=== PATIENT | male | born 1935 | race Caucasian/White ===

== ENCOUNTER 2016-05-23 10:07 | Emergency (ER) | payer OTHER, BC ==
[~2016-05-23] VITALS: Ht 170.2 cm; Wt 63.0 kg
[~2016-05-23 10:07] MED LIST: ARICEPT10 MG PO; DEPAKOTE500 MG PO; DETROL LA4 MG PO; LEXAPRO5 MG PO; LIPITOR10 MG PO; LO-DOSE ASPIRIN81 M1 PO; NORVASC2.5 MG PO; PLAVIX75 MG PO; ZOFRAN4 MG PO
[2016-05-23 11:05] VITALS: BP 129/60
[2016-05-23 11:30] VITALS: BP 148/72
[2016-05-23 13:07] VITALS: BP 148/72
== END 2016-05-23 13:10 ==
LOC: EME → EDBD 10:07 → EME 10:07
DX: S09.90XA Unspecified injury of head, initial encounter (principal); F03.90 Unspecified dementia, unspecified severity, without behavioral disturbance, psychotic disturbance, mood disturbance, and anxiety; W07.XXXA Fall from chair, initial encounter; E78.5 Hyperlipidemia, unspecified; I10 Essential (primary) hypertension
CPT/HCPCS: 70450; 99281; 99284

== ENCOUNTER 2016-07-06 06:52 | Inpatient (IN) | payer OTHER, BC ==
[~2016-07-06] VITALS: Ht 177.8 cm; Wt 69.5 kg
[2016-07-06] MEDS ORDERED: CALCIUM ANTACID PO (08:02)
[2016-07-06] MEDS ORDERED: QUESTRAN PACKET4 GM PO (08:03)
[2016-07-06 08:25] LABS: EOSINOPHIL (%) 0.3 % (0-5); HEMATOCRIT 34.1 % (38.0-50.0); IMMATURE GRANULOCYTE (%) 0.3 % (0.0-0.7); INSTRUMENT ABS NEUTROPHIL CT 6.8 K/uL; MCH 29.8 PG (29.0-34.0); MCHC 32.8 G/DL (30.0-36.0); MCV 90.7 FL (86-99); MEAN PLAT.VOLUME 9.1 uM^3 (9.0-12.4); MONOCYTE (%) 8.1 % (3-12); MONOCYTE COUNT 0.7 K/uL (0-0.8); NEUTROPHIL (%) 79.2 % (45-76); NEUTROPHIL COUNT 6.8 K/uL (1.8-6.4); PLATELET COUNT 148 K/uL (156-360); RBC DIS.WIDTH-CV 13.8 % (11.8-14.6); RBC DIS.WIDTH-SD 45.5 % (39-53); RED BLOOD COUNT 3.76 M/uL (4.00-5.50); WHITE BLOOD COUNT 8.7 K/uL (4.1-10.2)
[2016-07-06 08:33] LABS: INTER. NORMALIZED RATIO 1.2; PROTHROMBIN TIME 12.2 (9.2-11.2)
[2016-07-06 08:36] LABS: CHLORIDE 105 mEq/L (99-109); POTASSIUM 3.5 mEq/L (3.7-5.4); SODIUM 143 mEq/L (136-147)
[2016-07-06 08:38] LABS: GLUCOSE 131 mg/dL (70-99)
[2016-07-06 08:39] LABS: ANION GAP 10 MEQ/L (2-14)
[2016-07-06 08:42] LABS: GFR ESTIMATE (CALCULATED) > 59 mL/min/; UREA NITROGEN (BUN) 17 mg/dL (9-23)
[2016-07-06] MEDS ORDERED: DEPAKOTE250 MG PO ×2 (09:09→09:10)
[2016-07-06] MEDS ORDERED: TUMS500 MG PO (09:13)
[2016-07-06] MEDS ORDERED: CHOLESTYRAMINE P4 GM PO (09:15)
[2016-07-06] MEDS ORDERED: FERROUS SULFAT325 MG PO (09:16)
[2016-07-06] MEDS ORDERED: OMEPRAZOLE20 MG PO (09:18)
[2016-07-06] MEDS ORDERED: VICKS VAPORUB O50 GM TP (09:20)
[2016-07-06] MEDS ORDERED: ALPRAZOLAM0.5 MG PO (09:21)
[2016-07-06] MEDS ORDERED: TYLENOL REGULA325 MG PO (09:22)
[2016-07-06 14:40] VITALS: BP 146/66
[2016-07-06 15:25] VITALS: BP 175/77
[2016-07-06 16:30] VITALS: BP 148/70
[2016-07-06 19:35] VITALS: BP 145/69
[2016-07-06 23:15] VITALS: BP 126/65
[2016-07-07 03:25] VITALS: BP 166/77
[2016-07-07 05:27] LABS: TROP-I INTERPRETATION NEGATIVE; TROPONIN-I 0.02 ng/mL (0.0-0.30)
[2016-07-07 05:33] LABS: ALKALINE PHOSPHATASE 41 IU/L (3-129); ANION GAP 6 MEQ/L (2-14); CHLORIDE 106 MEQ/L (99-109); GFR ESTIMATE (CALCULATED) > 59 mL/min/; GLUCOSE 142 mg/dL (70-99); SAMPLE HEMOLYSIS CHECK 0; SAMPLE ICTERIC CHECK 0; SAMPLE LIPEMIA CHECK 0; SODIUM 142 MEQ/L (136-147); TOTAL BILIRUBIN 0.6 MG/DL (0.0-1.0); UREA NITROGEN (BUN) 22 mg/dL (9-23)
[2016-07-07 06:28] LABS: EOSINOPHIL (%) 0 % (0-5); HEMATOCRIT 27.5 % (38.0-50.0); IMMATURE GRANULOCYTE (%) 0.3 % (0.0-0.7); INSTRUMENT ABS NEUTROPHIL CT 4.5 K/uL; LYMPHOCYTE COUNT 0.8 K/uL (1.0-2.8); MCH 30.4 PG (29.0-34.0); MCHC 33.1 G/DL (30.0-36.0); MONOCYTE (%) 15.4 % (3-12); NEUTROPHIL (%) 71.6 % (45-76); NEUTROPHIL COUNT 4.5 K/uL (1.8-6.4); PLATELET COUNT 141 K/uL (156-360); RBC DIS.WIDTH-CV 14.3 % (11.8-14.6); RBC DIS.WIDTH-SD 48.1 % (39-53); WHITE BLOOD COUNT 6.2 K/uL (4.1-10.2)
[2016-07-07 06:44] LABS: RED BLOOD COUNT 2.99 M/uL (4.00-5.50)
[2016-07-07 15:12] LABS: HEMATOCRIT 24.4 % (38.0-50.0); MCH 29.6 PG (29.0-34.0); MCHC 31.6 G/DL (30.0-36.0); MCV 93.8 FL (86-99); PLATELET COUNT 111 K/uL (156-360); RBC DIS.WIDTH-CV 14.3 % (11.8-14.6); RBC DIS.WIDTH-SD 48.9 % (39-53); WHITE BLOOD COUNT 7.2 K/uL (4.1-10.2)
[2016-07-07 16:35] VITALS: BP 172/92
[2016-07-07 19:46] VITALS: BP 184/84
[2016-07-08] VITALS (14 sets, daily range): BP systolic 124–152; BP diastolic 62–80
[2016-07-08 05:38] LABS: EOSINOPHIL (%) 0 % (0-5); HEMATOCRIT 20.6 % (38.0-50.0); IMMATURE GRANULOCYTE (%) 0.6 % (0.0-0.7); INSTRUMENT ABS NEUTROPHIL CT 4.3 K/uL; LYMPHOCYTE COUNT 1.3 K/uL (1.0-2.8); MCH 30.3 PG (29.0-34.0); MCV 94.5 FL (86-99); MEAN PLAT.VOLUME 9.9 uM^3 (9.0-12.4); MONOCYTE (%) 16.9 % (3-12); MONOCYTE COUNT 1.1 K/uL (0-0.8); NEUTROPHIL (%) 63.3 % (45-76); NEUTROPHIL COUNT 4.3 K/uL (1.8-6.4); PLATELET COUNT 106 K/uL (156-360); RBC DIS.WIDTH-CV 14.4 % (11.8-14.6); RBC DIS.WIDTH-SD 48.7 % (39-53); RED BLOOD COUNT 2.18 M/uL (4.00-5.50); WHITE BLOOD COUNT 6.8 K/uL (4.1-10.2)
[2016-07-08 05:51] LABS: ALKALINE PHOSPHATASE 35 IU/L (3-129); ANION GAP 4 MEQ/L (2-14); CHLORIDE 111 MEQ/L (99-109); GFR ESTIMATE (CALCULATED) > 59 mL/min/; GLUCOSE 155 mg/dL (70-99); POTASSIUM 4.5 MEQ/L (3.7-5.4); SAMPLE HEMOLYSIS CHECK 0; SAMPLE ICTERIC CHECK 0; SAMPLE LIPEMIA CHECK 0; SODIUM 146 MEQ/L (136-147); TOTAL BILIRUBIN 0.4 MG/DL (0.0-1.0); UREA NITROGEN (BUN) 22 mg/dL (9-23)
[2016-07-09 02:59] VITALS: BP 139/62
[2016-07-09 05:47] LABS: EOSINOPHIL (%) 0.9 % (0-5); EOSINOPHIL COUNT 0.1 K/uL (0-0.3); HEMATOCRIT 23.3 % (38.0-50.0); IMMATURE GRANULOCYTE (%) 0.4 % (0.0-0.7); INSTRUMENT ABS NEUTROPHIL CT 3.3 K/uL; LYMPHOCYTE COUNT 1.5 K/uL (1.0-2.8); MCH 30.2 PG (29.0-34.0); MCV 91.4 FL (86-99); MEAN PLAT.VOLUME 10.3 uM^3 (9.0-12.4); MONOCYTE (%) 13.7 % (3-12); MONOCYTE COUNT 0.8 K/uL (0-0.8); NEUTROPHIL COUNT 3.3 K/uL (1.8-6.4); PLATELET COUNT 90 K/uL (156-360); RBC DIS.WIDTH-CV 14.1 % (11.8-14.6); RBC DIS.WIDTH-SD 47.6 % (39-53); RED BLOOD COUNT 2.55 M/uL (4.00-5.50); WHITE BLOOD COUNT 5.6 K/uL (4.1-10.2)
[2016-07-09 05:59] LABS: ANION GAP 3 MEQ/L (2-14); CHLORIDE 110 MEQ/L (99-109); GFR ESTIMATE (CALCULATED) > 59 mL/min/; GLUCOSE 114 mg/dL (70-99); POTASSIUM 3.7 MEQ/L (3.7-5.4); SAMPLE HEMOLYSIS CHECK 0; SAMPLE ICTERIC CHECK 0; SAMPLE LIPEMIA CHECK 0; SODIUM 144 MEQ/L (136-147); UREA NITROGEN (BUN) 23 mg/dL (9-23)
[2016-07-09 07:32] VITALS: BP 135/63
[2016-07-09 11:19] VITALS: BP 147/67
[2016-07-09 15:05] VITALS: BP 131/83
[2016-07-09 23:50] VITALS: BP 131/65
[2016-07-10 04:58] LABS: EOSINOPHIL (%) 1.7 % (0-5); EOSINOPHIL COUNT 0.1 K/uL (0-0.3); HEMATOCRIT 22.2 % (38.0-50.0); IMMATURE GRANULOCYTE (%) 0.2 % (0.0-0.7); INSTRUMENT ABS NEUTROPHIL CT 2.8 K/uL; LYMPHOCYTE COUNT 1.7 K/uL (1.0-2.8); MCHC 32.9 G/DL (30.0-36.0); MCV 91.4 FL (86-99); MEAN PLAT.VOLUME 10.7 uM^3 (9.0-12.4); MONOCYTE (%) 10.5 % (3-12); MONOCYTE COUNT 0.5 K/uL (0-0.8); NEUTROPHIL (%) 54.8 % (45-76); NEUTROPHIL COUNT 2.8 K/uL (1.8-6.4); PLATELET COUNT 101 K/uL (156-360); RBC DIS.WIDTH-CV 13.6 % (11.8-14.6); RBC DIS.WIDTH-SD 46.1 % (39-53); RED BLOOD COUNT 2.43 M/uL (4.00-5.50); WHITE BLOOD COUNT 5.2 K/uL (4.1-10.2)
[2016-07-10 07:32] VITALS: BP 116/61
[2016-07-10 15:05] VITALS: BP 147/69
[2016-07-11] VITALS (9 sets, daily range): BP systolic 110–141; BP diastolic 51–96
[2016-07-11 05:50] LABS: ANION GAP 3 MEQ/L (2-14); CHLORIDE 110 MEQ/L (99-109); GFR ESTIMATE (CALCULATED) > 59 mL/min/; GLUCOSE 108 mg/dL (70-99); POTASSIUM 3.9 MEQ/L (3.7-5.4); SAMPLE HEMOLYSIS CHECK 0; SAMPLE ICTERIC CHECK 0; SAMPLE LIPEMIA CHECK 0; SODIUM 143 MEQ/L (136-147); UREA NITROGEN (BUN) 19 mg/dL (9-23)
[2016-07-11 06:21] LABS: EOSINOPHIL (%) 4.2 % (0-5); EOSINOPHIL COUNT 0.2 K/uL (0-0.3); HEMATOCRIT 21.1 % (38.0-50.0); IMMATURE GRANULOCYTE (%) 0.2 % (0.0-0.7); INSTRUMENT ABS NEUTROPHIL CT 2.6 K/uL; LYMPHOCYTE COUNT 1.3 K/uL (1.0-2.8); MCH 30.7 PG (29.0-34.0); MCHC 32.7 G/DL (30.0-36.0); MCV 93.8 FL (86-99); MEAN PLAT.VOLUME 10.3 uM^3 (9.0-12.4); MONOCYTE (%) 9.3 % (3-12); MONOCYTE COUNT 0.4 K/uL (0-0.8); NEUTROPHIL (%) 57.6 % (45-76); NEUTROPHIL COUNT 2.6 K/uL (1.8-6.4); PLATELET COUNT 115 K/uL (156-360); RBC DIS.WIDTH-CV 13.7 % (11.8-14.6); RBC DIS.WIDTH-SD 47.5 % (39-53); RED BLOOD COUNT 2.25 M/uL (4.00-5.50); WHITE BLOOD COUNT 4.5 K/uL (4.1-10.2)
[2016-07-12 04:00] VITALS: BP 132/88
[2016-07-12 06:44] LABS: EOSINOPHIL (%) 2.4 % (0-5); EOSINOPHIL COUNT 0.2 K/uL (0-0.3); HEMATOCRIT 28.3 % (38.0-50.0); IMMATURE GRANULOCYTE (%) 0.2 % (0.0-0.7); INSTRUMENT ABS NEUTROPHIL CT 3.7 K/uL; LYMPHOCYTE COUNT 1.9 K/uL (1.0-2.8); MCH 30.1 PG (29.0-34.0); MCHC 33.2 G/DL (30.0-36.0); MCV 90.7 FL (86-99); MONOCYTE (%) 10.8 % (3-12); MONOCYTE COUNT 0.7 K/uL (0-0.8); NEUTROPHIL (%) 56.5 % (45-76); NEUTROPHIL COUNT 3.7 K/uL (1.8-6.4); RBC DIS.WIDTH-CV 13.7 % (11.8-14.6); RBC DIS.WIDTH-SD 45.4 % (39-53)
[2016-07-12 06:45] LABS: PLATELET COUNT 162 K/uL (156-360); RED BLOOD COUNT 3.12 M/uL (4.00-5.50); WHITE BLOOD COUNT 6.6 K/uL (4.1-10.2)
[2016-07-12 06:59] LABS: ANION GAP 9 MEQ/L (2-14); CHLORIDE 108 MEQ/L (99-109); GFR ESTIMATE (CALCULATED) > 59 mL/min/; GLUCOSE 99 mg/dL (70-99); POTASSIUM 3.8 MEQ/L (3.7-5.4); SAMPLE HEMOLYSIS CHECK 0; SAMPLE ICTERIC CHECK 0; SAMPLE LIPEMIA CHECK 0; SODIUM 142 MEQ/L (136-147); UREA NITROGEN (BUN) 19 mg/dL (9-23)
[2016-07-12 08:47] VITALS: BP 167/86
[2016-07-12] MEDS ORDERED: XARELTO10 MG PO (15:46)
[2016-07-12] MEDS ORDERED: BISAC-EVAC10 MG PR (15:48)
[2016-07-12] MEDS ORDERED: DIVALPROEX SOD125 MG PO (15:48)
[2016-07-12] MEDS ORDERED: SENNA PLUS TAB1 EACH PO (15:49)
[2016-07-12 15:51] VITALS: BP 158/70
[2016-07-12] MEDS ORDERED: VITAMIN D-32000 UNI2 PO (15:54)
[2016-07-12] MEDS ORDERED: OXYCODONE-APAP1 EACH PO (15:54)
[2016-07-12] MEDS ORDERED: TOBRADEX EYE O3.5 GM BOTH EYES (15:55)
== END 2016-07-12 18:14 | DRG 481 ==
LOC: EME → EDBD 06:52 → EDOF 09:33 → 3EAST 09:33
PROVIDERS: Emergency Medicine; Internal Medicine; Orthopaedic Surgery
PROC: 0QS736Z Reposition Left Upper Femur with Intramedullary Internal Fixation Device, Percutaneous Approach (ICD-10-PCS; principal; 2016-07-07)
PROC: 30233N1 Transfusion of Nonautologous Red Blood Cells into Peripheral Vein, Percutaneous Approach (ICD-10-PCS; 2016-07-08)
DX: S72.142A Displaced intertrochanteric fracture of left femur, initial encounter for closed fracture (principal); S72.22XA Displaced subtrochanteric fracture of left femur, initial encounter for closed fracture; W19.XXXA Unspecified fall, initial encounter; Y93.9 Activity, unspecified; D62 Acute posthemorrhagic anemia; I10 Essential (primary) hypertension; G30.9 Alzheimer's disease, unspecified; F02.80 Dementia in other diseases classified elsewhere, unspecified severity, without behavioral disturbance, psychotic disturbance, mood disturbance, and anxiety; K21.9 Gastro-esophageal reflux disease without esophagitis; E78.5 Hyperlipidemia, unspecified; I25.10 Atherosclerotic heart disease of native coronary artery without angina pectoris; Z85.828 Personal history of other malignant neoplasm of skin; Z95.5 Presence of coronary angioplasty implant and graft; Z79.82 Long term (current) use of aspirin; Z79.02 Long term (current) use of antithrombotics/antiplatelets; Y92.049 Unspecified place in boarding-house as the place of occurrence of the external cause; Z87.891 Personal history of nicotine dependence
CPT/HCPCS: 71010; 73502; 73552; 80048; 80053; 84484; 85014; 85018; 85025; 85027; 85610; 86900; 86901; 86920; 92526 GN; 92610 GN; 93005; 94799; 99281; 99285; C1713; J0690; J1650; J1940; J2250; J2270; J2405; J3010; J7030; J7042; P9016

== ENCOUNTER 2016-07-24 11:07 | Emergency (ER) | payer OTHER, BC ==
[~2016-07-24] VITALS: Ht 177.8 cm; Wt 63.3 kg
[~2016-07-24 11:07] MED LIST changes: +ALPRAZOLAM0.5 MG PO; +BISAC-EVAC10 MG PR; +CALCIUM ANTACID PO; +CHOLESTYRAMINE P4 GM PO; +DEPAKOTE250 MG PO; +DIVALPROEX SOD125 MG PO; +FERROUS SULFAT325 MG PO; +OMEPRAZOLE20 MG PO; +OXYCODONE-APAP1 EACH PO; +QUESTRAN PACKET4 GM PO; +SENNA PLUS TAB1 EACH PO; +TOBRADEX EYE O3.5 GM BOTH EYES; +TUMS500 MG PO; +TYLENOL REGULA325 MG PO; +VICKS VAPORUB O50 GM TP; +VITAMIN D-32000 UNI2 PO; +XARELTO10 MG PO
[2016-07-24 12:59] VITALS: BP 150/74
== END 2016-07-24 14:52 ==
LOC: EME 11:07
DX: S00.01XA Abrasion of scalp, initial encounter (principal); W05.0XXA Fall from non-moving wheelchair, initial encounter; Y92.129 Unspecified place in nursing home as the place of occurrence of the external cause; Y99.8 Other external cause status; Z79.01 Long term (current) use of anticoagulants; G30.9 Alzheimer's disease, unspecified; F02.81 Dementia in other diseases classified elsewhere, unspecified severity, with behavioral disturbance; I10 Essential (primary) hypertension; Z66 Do not resuscitate; Z51.5 Encounter for palliative care; K21.9 Gastro-esophageal reflux disease without esophagitis; E78.5 Hyperlipidemia, unspecified; I25.10 Atherosclerotic heart disease of native coronary artery without angina pectoris; Z95.5 Presence of coronary angioplasty implant and graft; Z85.828 Personal history of other malignant neoplasm of skin
CPT/HCPCS: 70450; 99281; 99284

== ENCOUNTER 2016-10-23 19:14 | Emergency (ER) | payer OTHER, BC ==
[~2016-10-23] VITALS: Ht 177.8 cm; Wt 49.7 kg
[2016-10-23] MEDS ORDERED: KEFLEX500 MG PO (22:06)
[2016-10-24 00:07] VITALS: BP 140/85
== END 2016-10-24 00:08 | disposition home or self-care (01) ==
LOC: EME → EDSEX 19:14 → EDBD 19:14 → EME 19:14
DX: S61.215A Laceration without foreign body of left ring finger without damage to nail, initial encounter (principal); F03.90 Unspecified dementia, unspecified severity, without behavioral disturbance, psychotic disturbance, mood disturbance, and anxiety; Y92.129 Unspecified place in nursing home as the place of occurrence of the external cause; Z23 Encounter for immunization
CPT/HCPCS: 73130; 99281; 99284